=== PATIENT | male | born 1970 | race Two or more races ===

== ENCOUNTER 2016-04-27 19:22 | Emergency (ER) | payer OTHER ==
[~2016-04-27] VITALS: Ht 167.6 cm; Wt 106.6 kg
[2016-04-27] MEDS ORDERED: IBUPROFEN 400 MG TABLET PO ONE (21:00)
[2016-04-27] MEDS ORDERED: IBUPROFEN 400 MG TABLET ONE (21:01)
[2016-04-27 22:04] VITALS: BP 121/62
== END 2016-04-27 22:05 | disposition home or self-care (01) ==
LOC: ER 19:22
DX: G44.209 Tension-type headache, unspecified, not intractable (principal); E78.00 Pure hypercholesterolemia, unspecified; F17.200 Nicotine dependence, unspecified, uncomplicated
CPT/HCPCS: 70450-TC; A4606; Z7610

== ENCOUNTER 2019-02-23 23:43 | Emergency (ER) | payer MEDICAID, OTHER ==
[~2019-02-23] VITALS: Ht 167.6 cm; Wt 106.6 kg
--- NOTE | 2019-02-23 23:45 | NUR ---
TO ER BED 10 BIB EMS C/O ABDOMINAL PAIN WITH N/V/D S/P EATING CAVIAR. PT AAOX4 NO ACUTE DISTRESS NOTED, RESP EVEN AND UNLABORED. PT UNABLE OT PROVIDE URINE SAMPLE AT THIS TIME. PENDING ER MD GARAY.
--- NOTE | 2019-02-23 23:46 | NUR ---
ER MD AT BEDSIDE TO EVAL PT WITH ORDERS RECEIVED, WILL CARRY OUT ORDERS.
[2019-02-23] MEDS ORDERED: ONDANSETRON HCL/PF 4 MG/2 ML VIAL ONE (23:57)
[2019-02-24] MEDS ORDERED: ONDANSETRON HCL/PF 4 MG/2 ML VIAL IVP ONE
[2019-02-24] MEDS ORDERED: IV NS 0.9% 1,000 ML BAG IV ONE
--- NOTE | 2019-02-24 00:05 | NUR ---
PT MEDICATED PER ER MD ORDER.
[2019-02-24 00:11] LABS: BASOPHILS % (AUTO) 0.3 % (0.0-2.0); EOSINOPHILS % (AUTO) 0.4 % (0.0-6.0); HEMATOCRIT 50 % (39-51); HEMOGLOBIN 16.2 g/dL (13.5-17.5); LYMPHOCYTES # (AUTO) 2.9 /CMM (0.8-4.8); LYMPHOCYTES % (AUTO) 19.2 % (20.0-44.0); MEAN CORPUSCULAR HGB CONC 32 g/dl (31.0-36.0); MEAN CORPUSCULAR VOLUME 80 fL (80-96); MONOCYTES # (AUTO) 0.5 /CMM (0.1-1.30); MONOCYTES % (AUTO) 3.5 % (2.0-12.0); NEUTROPHILS # (AUTO) 11.4 /CMM (1.8-8.9); NEUTROPHILS % (AUTO) 76.6 % (43.0-81.0); PLATELET COUNT (AUTO) 280 /CMM (150-450); RED BLOOD CELL COUNT(AUTO) 6.29 MIL/uL (4.5-6.0); WHITE BLOOD COUNT (AUTO) 14.9 K/uL (4.3-11.0)
[2019-02-24 00:14] LABS: CALCIUM, SERUM 10.3 mg/dL (8.5-10.1); POTASSIUM 3.8 mmol/L (3.5-5.1)
[2019-02-24 00:25] LABS: ALBUMIN 4.5 g/dL (3.4-5.0); BILIRUBIN,DIRECT 0.1 mg/dL (0.0-0.2); BILIRUBIN,TOTAL 0.3 mg/dL (0.2-1.0); TOTAL PROTEIN, SERUM 8.4 g/dL (6.4-8.2)
--- NOTE | 2019-02-24 00:36 | NUR ---
PT SLEEPING COMFORTABLY IN BED. ARROUSABLE THROUGH TACTILE AND VERBAL STIMULI.
--- NOTE | 2019-02-24 00:40 | NUR ---
MD ORDERED PO CHALLENGE PATIENT. PATIENT TOLERATED 1 CUP OF WATER WELL.
--- NOTE | 2019-02-24 00:58 | NUR ---
Hayder boothe in [facility] - 02/24/19 at 0058 by ROSSY PRESCRIPTIONS GIVEN TO PATIENT AND EXPLAINED.
--- NOTE | 2019-02-24 00:59 | NUR ---
IV removed. Catheter intact and site benign. Pressure and 4x4 applied to site. No bleeding noted. Patient discharged to home in stable condition. Written and verbal after care instructions given. Patient verbalizes understanding of instruction. Patient is ambulatory with a steady gait. AAOX4. no sob. breathing evenly and unlabored.
--- NOTE | 2019-02-24 00:59 | NUR ---
PT GIVEN PRESCRIPTION AND EXPLAINED.
[2019-02-24 01:00] VITALS: BP 132/73
== END 2019-02-24 01:01 | disposition home or self-care (01) ==
LOC: ER 23:43
DX: A08.4 Viral intestinal infection, unspecified (principal); R11.2 Nausea with vomiting, unspecified; R19.7 Diarrhea, unspecified; E78.00 Pure hypercholesterolemia, unspecified; F17.200 Nicotine dependence, unspecified, uncomplicated; Z98.890 Other specified postprocedural states; Z95.5 Presence of coronary angioplasty implant and graft
CPT/HCPCS: 36415; 80048; 80076; 83690; 85025; 96361; 96374; 99283; J2405; J7030

== ENCOUNTER 2019-07-04 23:36 | Emergency (ER) | payer MEDICAID ==
[~2019-07-04] VITALS: Ht 165.1 cm; Wt 106.6 kg
[2019-07-05] MEDS ORDERED: KETOROLAC TROMETHAMINE INJ 30 MG/ML VIAL IV ONE (00:30)
[2019-07-05] MEDS ORDERED: MORPHINE SULFATE INJ 2 MG/ML DISP.SYRIN IV ONE (00:30)
--- NOTE | 2019-07-05 00:44 | NUR ---
BLOOD DRAWN AND SENT TO THE LAB. Addendum: 07/05/19 at 0158 by SHANEL Amendment undone in EDM - 07/05/19 at 0159 by SHANEL IV removed. Catheter intact and site benign. Pressure and 4x4 applied to site. No bleeding noted. Patient discharged to home in stable condition. Written and verbal after care instructions given. Patient verbalizes understanding of instruction.
[2019-07-05 00:45] LABS: BASOPHILS % (AUTO) 0.3 % (0.0-2.0); EOSINOPHILS % (AUTO) 0.5 % (0.0-6.0); HEMATOCRIT 47 % (39-51); HEMOGLOBIN 15.5 g/dL (13.5-17.5); LYMPHOCYTES # (AUTO) 3.7 /CMM (0.8-4.8); LYMPHOCYTES % (AUTO) 39.2 % (20.0-44.0); MEAN CORPUSCULAR HGB CONC 33 g/dl (31.0-36.0); MEAN CORPUSCULAR VOLUME 79 fL (80-96); MONOCYTES # (AUTO) 0.6 /CMM (0.1-1.30); MONOCYTES % (AUTO) 6.8 % (2.0-12.0); NEUTROPHILS % (AUTO) 53.2 % (43.0-81.0); PLATELET COUNT (AUTO) 268 /CMM (150-450); RED BLOOD CELL COUNT(AUTO) 6.01 MIL/uL (4.5-6.0); WHITE BLOOD COUNT (AUTO) 9.4 K/uL (4.3-11.0)
[2019-07-05 00:46] LABS: APPEARANCE,URINE Clear (CLEAR); BILIRUBIN,URINE Negative (NEGATIVE); BLOOD, URINE Negative Ery/uL (NEGATIVE); COLOR,URINE Yellow (YELLOW); KETONES,URINE Negative (NEGATIVE); LEUKOCYTE ESTERASE ,URINE Negative (NEGATIVE); NITRITE, URINE Negative (NEGATIVE); PROTEIN,URINE Negative (NEGATIVE); UGLUCOSE Negative (NEGATIVE); UROBILINOGEN,URINE 0.2 EU/dL (0.2)
[2019-07-05] MEDS ORDERED: IV NS 0.9% 250 ML IV ONE (00:51)
[2019-07-05] MEDS ORDERED: IOHEXOL-300 100 ML VIAL IV ONE (00:51)
--- NOTE | 2019-07-05 00:52 | NUR ---
PATIENT CAME TO ER BED 3 C/O RIGHT UPPER ABDOMINAL PAIN FOR 6 MONTHS. PATIENT DENIES NAUSEA AND VOMITING. AAOX4. NO SOB. BREATHING EVENLY AND UNLABORED ON ROOM AIR. CONNNECTED TO MONITOR.
[2019-07-05 00:53] LABS: CALCIUM, SERUM 9.1 mg/dL (8.5-10.1); CARBON DIOXIDE 26 mmol/L (21-32); CHLORIDE 100 mmol/L (98-107); CREATININE 0.8 mg/dL (0.6-1.3); GLUCOSE 114 mg/dL (74-106); POTASSIUM 3.8 mmol/L (3.5-5.1); SODIUM SERUM 136 mmol/L (136-145); UREA NITROGEN, BLOOD 11 mg/dL (7-18)
[2019-07-05 00:59] LABS: ALANINE AMINOTRANSFERASE 41 U/L (12-78); ALBUMIN 4.1 g/dL (3.4-5.0); ALKALINE PHOSPHATASE 77 U/L (46-116); ASPARTATE AMINOTRANSFERASE 21 U/L (15-37); BILIRUBIN,TOTAL 0.3 mg/dL (0.2-1.0); LIPASE 159 U/L (73-393); TOTAL PROTEIN, SERUM 7.8 g/dL (6.4-8.2)
--- NOTE | 2019-07-05 01:05 | NUR ---
PATIENT TAKEN TO CT.
--- NOTE | 2019-07-05 01:14 | NUR ---
RETURNED FROM CT.
[2019-07-05 01:57] VITALS: BP 127/76
--- NOTE | 2019-07-05 01:59 | NUR ---
IV removed. Catheter intact and site benign. Pressure and 4x4 applied to site. No bleeding noted. Patient discharged to home in stable condition. Written and verbal after care instructions given. Patient verbalizes understanding of instruction.
== END 2019-07-05 01:58 | disposition home or self-care (01) ==
LOC: ER 23:38
DX: R10.11 Right upper quadrant pain (principal); R07.81 Pleurodynia; R07.89 Other chest pain; F17.200 Nicotine dependence, unspecified, uncomplicated; E78.00 Pure hypercholesterolemia, unspecified; Z98.890 Other specified postprocedural states
CPT/HCPCS: 36415; 71045; 74177; 80048; 80076; 81001; 83690; 84484; 85025; 93005; 99285; J7050; Q9967; 81000-TC

== ENCOUNTER 2020-07-10 08:22 | Emergency (ER) | payer MEDICAID ==
[~2020-07-10] VITALS: Ht 165.1 cm; Wt 104.3 kg
[2020-07-10] MEDS ORDERED: ASPIRIN 325 MG TABLET ONE (08:37)
--- NOTE | 2020-07-10 08:40 | NUR ---
WOKE UP WITH MIDSTERNAL/EPIGASTRIC PAIN, NECK TIGHTNESS, NON-RADIATING, PS. 12/07 PATIENT AA/OX4, BREATHING EVEN AND UNLABORED, DENIES SOB. NEEDS ATTENDED. ATTACHED TO THE [employer]IST. DR. CLEANING AT BEDSIDE FOR EVAL.
[2020-07-10] MEDS ORDERED: MAG HYDROX/AL HYDROX/SIMETH 30 ML UDC ONE (08:53)
[2020-07-10] MEDS ORDERED: LIDOCAINE VISCOUS 2% UD 15 ML UDC ONE (08:53)
[2020-07-10] MEDS ORDERED: ASPIRIN 325 MG TABLET PO ONE (09:00)
[2020-07-10] MEDS ORDERED: LIDOCAINE VISCOUS 2% UD 15 ML UDC MM ONE (09:00)
[2020-07-10] MEDS ORDERED: MAG HYDROX/AL HYDROX/SIMETH 30 ML UDC PO ONE (09:00)
[2020-07-10 09:12] LABS: BASOPHILS % (AUTO) 0.3 % (0.0-2.0); EOSINOPHILS % (AUTO) 0.4 % (0.0-6.0); HEMATOCRIT 45 % (39-51); HEMOGLOBIN 14.5 g/dL (13.5-17.5); LYMPHOCYTES % (AUTO) 30.4 % (20.0-44.0); MEAN CORPUSCULAR HGB CONC 33 g/dl (31.0-36.0); MEAN CORPUSCULAR VOLUME 78 fL (80-96); MONOCYTES # (AUTO) 0.4 /CMM (0.1-1.30); MONOCYTES % (AUTO) 6.1 % (2.0-12.0); NEUTROPHILS # (AUTO) 4.1 /CMM (1.8-8.9); NEUTROPHILS % (AUTO) 62.8 % (43.0-81.0); PLATELET COUNT (AUTO) 224 /CMM (150-450); RED BLOOD CELL COUNT(AUTO) 5.73 MIL/uL (4.5-6.0); WHITE BLOOD COUNT (AUTO) 6.6 K/uL (4.3-11.0)
[2020-07-10 09:23] LABS: CREATININE 0.8 mg/dL (0.6-1.3); POTASSIUM 4.1 mmol/L (3.5-5.1)
--- NOTE | 2020-07-10 09:37 | NUR ---
PATIENT RESTING, NO DISTRESS NOTED.
[2020-07-10] MEDS ORDERED: ENOXAPARIN SODIUM 100 MG/ML DISP.SYRIN SQ ONE ×4 (09:41→10:00)
[2020-07-10] MEDS ORDERED: ATOR40TA PO (09:42)
[2020-07-10] MEDS ORDERED: TOBR5DRO46 RIGHTEYE (09:42)
[2020-07-10] MEDS ORDERED: CLOP75TA15 PO (09:42)
[2020-07-10] MEDS ORDERED: METO25TA4 PO (09:42)
[2020-07-10] MEDS ORDERED: PANT40TA49 PO (09:42)
--- NOTE | 2020-07-10 09:57 | NUR ---
COVID SWAB SENT.
--- NOTE | 2020-07-10 09:57 | NUR ---
PATIENTS CHEST PAIN IMPROVED.
[2020-07-10 10:11] LABS: ALBUMIN 3.8 g/dL (3.4-5.0); BILIRUBIN,DIRECT 0.2 mg/dL (0.0-0.2); BILIRUBIN,TOTAL 0.8 mg/dL (0.2-1.0); TOTAL PROTEIN, SERUM 7.3 g/dL (6.4-8.2)
--- NOTE | 2020-07-10 11:30 | NUR ---
COVID RESULT FAXED TO [facility]
--- NOTE | 2020-07-10 12:03 | NUR ---
FAXED COVID RESULT TO [phone]
--- NOTE | 2020-07-10 12:54 | NUR ---
JENNIFER YU CALLED PT ACCEPTED [facility] [address] [place] CALL [phone] FOR REPORT ROOM #616-A TRANSPORT VIA [facility] ETA [phone]
--- NOTE | 2020-07-10 13:21 | NUR ---
REPORT GIVEN TO BRAD LANDRY AT [facility].
--- NOTE | 2020-07-10 15:03 | NUR ---
REPORT GIVEN TO [employer]. PATIENT TRANSFERRED TO [facility] IN STABLE CONDITION. CD IMAGING AND PAPERWORKS GIVEN TO [employer] HAND[employer].
[2020-07-10 15:04] VITALS: BP 125/73
== END 2020-07-10 15:05 | disposition short-term general hospital (02) ==
LOC: ER 08:24
DX: I21.4 Non-ST elevation (NSTEMI) myocardial infarction (principal); I25.10 Atherosclerotic heart disease of native coronary artery without angina pectoris; Z79.02 Long term (current) use of antithrombotics/antiplatelets; Z95.5 Presence of coronary angioplasty implant and graft; K27.9 Peptic ulcer, site unspecified, unspecified as acute or chronic, without hemorrhage or perforation; Z79.899 Other long term (current) drug therapy; E78.00 Pure hypercholesterolemia, unspecified; Z20.822 Contact with and (suspected) exposure to COVID-19; I10 Essential (primary) hypertension; R00.1 Bradycardia, unspecified
CPT/HCPCS: 36415; 71045; 80048; 80076; 83690; 84484 ×2; 85025; 87426; 93005 ×2; 96372; 99291; 99292; C9803; J1650

== ENCOUNTER 2020-11-20 17:53 | Emergency (ER) | payer MEDICAID ==
[~2020-11-20] VITALS: Ht 165.1 cm; Wt 106.6 kg
[~2020-11-20 17:53] MED LIST: ATOR40TA PO; CLOP75TA15 PO; METO25TA4 PO; PANT40TA49 PO; TOBR5DRO46 RIGHTEYE
--- NOTE | 2020-11-20 17:53 | NUR ---
PT BIB SELF C/O CHEST PAIN AND SHORTNESS OF BREATH X 4 DAYS. PT IS AAOX4, NOT IN RESPIRATORY DISTRESS, HOOKED TO FLAVORING MAKER, KEPT RESTED AND COMFORTABLE. WILL CONTINUE TO MONITOR.
--- NOTE | 2020-11-20 18:18 | NUR ---
COURTROOM REPORTER AT BEDSIDE FOR XRAY.
--- NOTE | 2020-11-20 18:20 | NUR ---
PT IV LINE ESTABLISHED BLOOD DRAWN AND SENT TO LAB.
[2020-11-20 18:33] LABS: BASOPHILS % (AUTO) 0.2 % (0.0-2.0); EOSINOPHILS % (AUTO) 0.4 % (0.0-6.0); HEMATOCRIT 44 % (39-51); HEMOGLOBIN 14.3 g/dL (13.5-17.5); LYMPHOCYTES # (AUTO) 1.9 K/uL (0.8-4.8); LYMPHOCYTES % (AUTO) 41.7 % (20.0-44.0); MEAN CORPUSCULAR HGB CONC 33 g/dl (31.0-36.0); MEAN CORPUSCULAR VOLUME 77 fL (80-96); MONOCYTES # (AUTO) 0.5 K/uL (0.1-1.30); MONOCYTES % (AUTO) 10.8 % (2.0-12.0); NEUTROPHILS # (AUTO) 2.1 K/uL (1.8-8.9); NEUTROPHILS % (AUTO) 46.9 % (43.0-81.0); PLATELET COUNT (AUTO) 208 K/uL (150-450); WHITE BLOOD COUNT (AUTO) 4.5 K/uL (4.3-11.0)
[2020-11-20 18:48] LABS: CALCIUM, SERUM 8.9 mg/dL (8.5-10.1); CARBON DIOXIDE 29 mmol/L (21-32); CHLORIDE 103 mmol/L (98-107); CREATININE 0.9 mg/dL (0.6-1.3); GLUCOSE 201 mg/dL (74-106); SODIUM SERUM 141 mmol/L (136-145); UREA NITROGEN, BLOOD 16 mg/dL (7-18)
[2020-11-20] MEDS ORDERED: LISI-768 PO (19:00)
[2020-11-20] MEDS ORDERED: NITROGLYCERIN PACKET 1 GM PACKET TOP ONE (19:00)
[2020-11-20] MEDS ORDERED: ASPIRIN 325 MG TABLET PO ONE (19:00)
[2020-11-20] MEDS ORDERED: ALBU18HF2 IH (19:00)
[2020-11-20] MEDS ORDERED: ASPI-1420 PO (19:00)
[2020-11-20] MEDS ORDERED: ASPIRIN 325 MG TABLET ONE (19:06)
[2020-11-20] MEDS ORDERED: NITROGLYCERIN PACKET 1 GM PACKET ONE (19:06)
--- NOTE | 2020-11-20 19:30 | NUR ---
RECEIVED REPORT FOR BENJAMIN, PATIETN IN BED RESTING, RR EVEN AND UNLABORED NO SOB NOTED. PATIENT CONNECTED TO MONITOR. PATIENT IN NO ACUTE DISTRESS.
[2020-11-20] MEDS ORDERED: IOHEXOL-350 100 ML VIAL IV ONE (19:59)
[2020-11-20] MEDS ORDERED: IV NS 0.9% 250 ML IV ONE (19:59)
--- NOTE | 2020-11-20 20:13 | NUR ---
PATIENT RETURNED FROM CT
--- NOTE | 2020-11-20 21:16 | NUR ---
EDMUNDO BOYD TALKING TO DR. CORREIA FROM [facility] REGARDING PT.
--- NOTE | 2020-11-20 21:55 | NUR ---
Patient discharged to home in stable condition. Written and verbal after care instructions given. Patient verbalizes understanding of instruction.Patient does not wish to proceed with medical care recommended by Dr. Holt. Patient given information related to possible complications, up to and including , which could occur as a result of leaving the hospital at this time. Patient verbalizes understanding of risks involved due to leaving against medical advice. Patient has signed AMA form.
[2020-11-20 22:06] VITALS: BP 138/76
== END 2020-11-20 22:08 | disposition left against medical advice (07) ==
LOC: ER 17:53
DX: R07.9 Chest pain, unspecified (principal); K76.0 Fatty (change of) liver, not elsewhere classified; Z53.29 Procedure and treatment not carried out because of patient's decision for other reasons; Z86.16 Personal history of COVID-19; I25.10 Atherosclerotic heart disease of native coronary artery without angina pectoris; Z95.1 Presence of aortocoronary bypass graft; Z95.5 Presence of coronary angioplasty implant and graft; E78.5 Hyperlipidemia, unspecified; E11.9 Type 2 diabetes mellitus without complications; Z79.02 Long term (current) use of antithrombotics/antiplatelets; Z79.899 Other long term (current) drug therapy; R94.31 Abnormal electrocardiogram [ECG] [EKG]; Z20.822 Contact with and (suspected) exposure to COVID-19
CPT/HCPCS: 36415; 71045; 71275; 80048; 83735; 83880; 84484; 85025; 85378; 87426; 93005 ×2; 93970; 99285; C9803; J7050; Q9967

== ENCOUNTER 2024-06-15 15:32 | Emergency (ER) | payer MEDICAID, OTHER ==
[~2024-06-15] VITALS: Ht 165.1 cm; Wt 106.6 kg
[~2024-06-15 15:32] MED LIST changes: +ALBU18HF2 IH; +ASPI-1420 PO; +LISI-768 PO; -TOBR5DRO46 RIGHTEYE
[2024-06-15] MEDS ORDERED: MORPHINE SULFATE INJ 4 MG/ML DISP.SYRIN ONE ×2 (16:28→18:53)
[2024-06-15] MEDS ORDERED: ONDANSETRON HCL/PF 4 MG/2 ML VIAL ONE (16:28)
[2024-06-15 16:47] LABS: BASOPHILS # (AUTO) 0.1 K/uL (0.0-0.2); BASOPHILS % (AUTO) 0.4 % (0.0-2.0); EOSINOPHILS # (AUTO) 0.1 K/uL (0.0-0.7); EOSINOPHILS % (AUTO) 0.6 % (0.0-6.0); HEMATOCRIT 49 % (39-51); HEMOGLOBIN 16.3 g/dL (13.5-17.5); LYMPHOCYTES # (AUTO) 3.1 K/uL (0.8-4.8); LYMPHOCYTES % (AUTO) 21.9 % (20.0-44.0); MEAN CORPUSCULAR HEMOGLOBIN 26 PG (26.0-33.0); MEAN CORPUSCULAR HGB CONC 33 g/dl (31.0-36.0); MEAN CORPUSCULAR VOLUME 78 fL (80-96); MONOCYTES # (AUTO) 0.8 K/uL (0.1-1.30); MONOCYTES % (AUTO) 5.9 % (2.0-12.0); NEUTROPHILS % (AUTO) 71.2 % (43.0-81.0); PLATELET COUNT (AUTO) 226 K/uL (150-450); RED BLOOD CELL COUNT(AUTO) 6.32 MIL/uL (4.5-6.0); RED CELL DISTRIBUTION WIDTH 14.5 % (11.5-15.0)
[2024-06-15] MEDS: ONDANSETRON HCL/PF 4 MG/2 ML VIAL IVP ONE (16:48)
[2024-06-15] MEDS: MORPHINE SULFATE INJ 2 MG/ML DISP.SYRIN IV ONE ×2 (16:48→19:05)
[2024-06-15] MEDS: IV NS 0.9% 1,000 ML BAG IV ONE (16:48)
[2024-06-15 17:02] LABS: ALANINE AMINOTRANSFERASE 23 U/L (12-78); ALBUMIN 4.1 g/dL (3.4-5.0); ALKALINE PHOSPHATASE 90 U/L (46-116); ASPARTATE AMINOTRANSFERASE 12 U/L (15-37); BILIRUBIN,DIRECT 0.2 mg/dL (0.0-0.2); BILIRUBIN,TOTAL 0.8 mg/dL (0.2-1.0); CALCIUM, SERUM 9.9 mg/dL (8.5-10.1); CARBON DIOXIDE 26 mmol/L (21-32); CHLORIDE 100 mmol/L (98-107); CREATININE 0.8 mg/dL (0.6-1.3); GLUCOSE 93 mg/dL (74-106); LIPASE 43 U/L (16-77); SODIUM SERUM 138 mmol/L (136-145); TOTAL PROTEIN, SERUM 8.3 g/dL (6.4-8.2); UREA NITROGEN, BLOOD 9 mg/dL (7-18)
[2024-06-15] MEDS ORDERED: METOCLOPRAMIDE HCL 10 MG/2 ML VIAL ONE (18:54)
[2024-06-15] MEDS: METOCLOPRAMIDE HCL 10 MG/2 ML VIAL IV ONE (19:05)
[2024-06-15] MEDS ORDERED: SECU150S2 SQ (19:09)
[2024-06-15] MEDS ORDERED: GLIM1TAB18 PO (19:09)
[2024-06-15] MEDS ORDERED: METO-357 PO (19:09)
[2024-06-15] MEDS ORDERED: METF-440 PO (19:09)
[2024-06-15] MEDS ORDERED: ACET-637 PO (19:09)
[2024-06-15] MEDS ORDERED: ATOR80TA PO (19:09)
[2024-06-16 02:28] VITALS: BP 124/70; TEMP 98.3; O2SAT 93
== END 2024-06-16 02:29 | disposition short-term general hospital (02) ==
LOC: ER 15:41
DX: K85.90 Acute pancreatitis without necrosis or infection, unspecified (principal); R05.9 Cough, unspecified; R10.13 Epigastric pain; I10 Essential (primary) hypertension; E11.9 Type 2 diabetes mellitus without complications; E78.00 Pure hypercholesterolemia, unspecified; F17.200 Nicotine dependence, unspecified, uncomplicated; I25.10 Atherosclerotic heart disease of native coronary artery without angina pectoris; K76.0 Fatty (change of) liver, not elsewhere classified; Z79.02 Long term (current) use of antithrombotics/antiplatelets; Z79.82 Long term (current) use of aspirin; Z79.84 Long term (current) use of oral hypoglycemic drugs; Z79.899 Other long term (current) drug therapy; Z87.19 Personal history of other diseases of the digestive system; Z95.1 Presence of aortocoronary bypass graft; Z95.5 Presence of coronary angioplasty implant and graft
CPT/HCPCS: 99285; 74176; 96374; 76705; 96375; 71045; 96361; 93005 ×2; 96376; 85025; 80048; 83690; 80076; 36415; 84484 ×2; J2270 ×2; J2765; J2405